=== PATIENT | female | born 1960 | race Caucasian/White ===

== ENCOUNTER 2018-02-27 16:53 | Observation (INO) | payer OTHER ==
[2018-02-27] MEDS: ONDANSETRON 4 MG INJ IV ×2 (17:29→19:36)
[2018-02-27 17:49] LABS: ADD MAN DIFF? NO
[2018-02-27 17:55] LABS: WHITE BLOOD COUNT 8.8 10^3/ul (4.8-10.8)
[2018-02-27 17:55] LABS: BASOPHILS % 0.2 % (0.0-2.0); EOSINOPHILS # 0.1 10^3/ul (0.0-0.5); EOSINOPHILS % 0.9 % (0.0-7.0); HEMATOCRIT 35.5 % (37.0-47.0); HEMOGLOBIN 12.8 g/dl (12.0-16.0); LYMPHOCYTES # 1.8 10^3/ul (0.8-2.9); LYMPHOCYTES % 19.9 % (15.0-51.0); MEAN CORPUSCULAR HEMOGLOBIN 30.1 pg (29.0-33.0); MEAN CORPUSCULAR HGB CONC 36.1 g/dl (32.0-37.0); MEAN CORPUSCULAR VOLUME 83.5 fl (82.0-101.0); MEAN PLATELET VOLUME 12.1 fl (7.4-10.4); MONOCYTE # 0.5 10^3/ul (0.3-0.9); MONOCYTES % 6.1 % (0.0-11.0); NEUTROPHIL # 6.4 10^3/ul (1.6-7.5); NEUTROPHILS % 72.3 % (39.0-77.0); PLATELET COUNT 364 10^3/UL (140-415); RED BLOOD COUNT 4.25 10^6/ul (4.20-5.40); RED CELL DISTRIBUTION WIDTH 11.8 % (11.5-14.5)
[2018-02-27 18:17] LABS: ALANINE AMINOTRANSFERASE 32 IU/L (13-69); ALBUMIN 4.4 g/dl (3.3-4.9); ALBUMIN/GLOBULIN RATIO 1.33; ALKALINE PHOSPHATASE 164 IU/L (42-121); ANION GAP 25 (8-16); ASPARTATE AMINO TRANSFERASE 17 IU/L (15-46); BILIRUBIN,INDIRECT 0.2 mg/dl (0-1.1); BILIRUBIN,TOTAL 0.2 mg/dl (0.2-1.3); BLOOD UREA NITROGEN 50 mg/dl (7-20); CALCIUM 9.3 mg/dl (8.4-10.2); CARBON DIOXIDE 23 mmol/L (21-31); CHLORIDE 89 mmol/L (97-110); CREATININE 2.37 mg/dl (0.44-1.00); GLUCOSE 331 mg/dl (70-220); LIPASE 194 U/L (23-300); POTASSIUM 3.1 mmol/L (3.5-5.1); SODIUM 134 mmol/L (135-144); TOTAL PROTEIN 7.7 g/dl (6.1-8.1)
[2018-02-27] MEDS: HYDROmorphONE 1 MG/ML SYG IV (19:36)
[2018-02-27] MEDS: SOD CHLORIDE 0.9% 1,000 ML IV (19:36)
[2018-02-27] MEDS ORDERED: NACL 0.9% 3 ML SYG IV (22:00)
[2018-02-27] MEDS ORDERED: BISACODYL (EC) 5 MG TAB PO (22:00)
[2018-02-27] MEDS ORDERED: DOCUSATE SODIUM 100 MG CAP PO (22:00)
[2018-02-27] MEDS ORDERED: ONDANSETRON 4 MG INJ IV (22:00)
[2018-02-27 23:28] LABS: ADD UMIC YES; UR ASCORBIC ACID NEGATIVE (NEGATIVE); UR BACTERIA FEW /HPF (NONE SEEN); UR BILIRUBIN (Dip) NEGATIVE (NEGATIVE); UR BLOOD (Dip) 1+ mg/dL (NEGATIVE); UR CLARITY SLIGHTLY CLOUDY (CLEAR); UR COLOR YELLOW (YELLOW); UR GLUCOSE (Dip) 3+ mg/dL (NEGATIVE); UR GRANULAR CAST FEW /HPF (NONE SEEN); UR HYALINE CAST FEW /HPF (NONE SEEN); UR KETONES (Dip) NEGATIVE (NEGATIVE); UR LEUKOCYTE ESTERASE (Dip) 3+ Leu/ul (NEGATIVE); UR NITRITE (Dip) NEGATIVE (NEGATIVE); UR NONSQUAMOUS EPITHELIAL CELL 1 /HPF (NONE SEEN); UR RBC 8 /HPF (0-5); UR SPECIFIC GRAVITY (Dip) 1.014 (1.003-1.030); UR SQUAMOUS EPITHELIAL CELL FEW /HPF (FEW); UR TOTAL PROTEIN (Dip) 3+ mg/dl (NEGATIVE); UR UROBILINOGEN (Dip) NEGATIVE (NEGATIVE); UR WBC 84 /HPF (0-5)
[2018-02-28] MEDS: SOD CHLORIDE 0.9% 1,000 ML IV ×2 (01:24→02:34)
[2018-02-28] MEDS: ACCU-CHEK XX (02:00)
[2018-02-28] MEDS: NS + KCL 20 MEQ 1,000 ML IV ×2 (03:31→16:48)
[2018-02-28] MEDS: POTASSIUM CHLORIDE (SR) 20 MEQ TAB PO (03:32)
[2018-02-28 05:57] LABS: ADD MAN DIFF? NO
[2018-02-28 06:04] LABS: WHITE BLOOD COUNT 5.7 10^3/ul (4.8-10.8)
[2018-02-28 06:04] LABS: BASOPHILS % 0.2 % (0.0-2.0); EOSINOPHILS # 0.1 10^3/ul (0.0-0.5); EOSINOPHILS % 1.8 % (0.0-7.0); HEMOGLOBIN 10.8 g/dl (12.0-16.0); LYMPHOCYTES # 2.1 10^3/ul (0.8-2.9); LYMPHOCYTES % 36.3 % (15.0-51.0); MEAN CORPUSCULAR HEMOGLOBIN 30.7 pg (29.0-33.0); MEAN CORPUSCULAR VOLUME 85.2 fl (82.0-101.0); MEAN PLATELET VOLUME 12.1 fl (7.4-10.4); MONOCYTE # 0.5 10^3/ul (0.3-0.9); MONOCYTES % 8.5 % (0.0-11.0); NEUTROPHILS % 52.8 % (39.0-77.0); PLATELET COUNT 269 10^3/UL (140-415); RED BLOOD COUNT 3.52 10^6/ul (4.20-5.40); RED CELL DISTRIBUTION WIDTH 11.9 % (11.5-14.5)
[2018-02-28 06:31] LABS: ALANINE AMINOTRANSFERASE 22 IU/L (13-69); ALBUMIN 3.2 g/dl (3.3-4.9); ALKALINE PHOSPHATASE 110 IU/L (42-121); ANION GAP 11 (8-16); ASPARTATE AMINO TRANSFERASE 15 IU/L (15-46); BLOOD UREA NITROGEN 43 mg/dl (7-20); CALCIUM 7.4 mg/dl (8.4-10.2); CARBON DIOXIDE 26 mmol/L (21-31); CHLORIDE 103 mmol/L (97-110); CHOL/HDL RATIO 4.9 RATIO; CHOLESTEROL 134 mg/dl (100-200); CREATININE 1.68 mg/dl (0.44-1.00); GLUCOSE 171 mg/dl (70-220); HDL CHOLESTEROL 27 mg/dl (37-92); LDL CHOLESTEROL,CALCULATED 37 mg/dl; MAGNESIUM 1.4 mg/dl (1.7-2.5); POTASSIUM 3.1 mmol/L (3.5-5.1); SODIUM 137 mmol/L (135-144); TOTAL PROTEIN 6.1 g/dl (6.1-8.1); TRIGLYCERIDES 352 mg/dl (0-149)
[2018-02-28 06:50] LABS: HEMOGLOBIN A1C 11.3 % (0-5.9)
[2018-02-28] MEDS: INSULIN ASPART [NOVOLOG] 3 ML PEN SC ×4 (07:55→20:47)
[2018-02-28] MEDS: ACETAMINOPHEN 325 MG TAB PO (07:56)
[2018-02-28] MEDS ORDERED: hydrALAzine 20 MG INJ IV (10:00)
[2018-02-28] MEDS: MAGNESIUM SULFATE 2 GM/50 ML 50 ML IVPB (10:28)
[2018-02-28] MEDS: FISH OIL 1,000 MG CAP PO ×2 (10:29→20:41)
[2018-02-28] MEDS: AMLODIPINE 5 MG TAB PO (10:29)
[2018-02-28 12:06] LABS: ADD UMIC YES; UR ASCORBIC ACID NEGATIVE (NEGATIVE); UR BACTERIA FEW /HPF (NONE SEEN); UR BILIRUBIN (Dip) NEGATIVE (NEGATIVE); UR BLOOD (Dip) NEGATIVE (NEGATIVE); UR CLARITY CLEAR (CLEAR); UR COLOR COLORLESS (YELLOW); UR GLUCOSE (Dip) 3+ mg/dL (NEGATIVE); UR KETONES (Dip) NEGATIVE (NEGATIVE); UR LEUKOCYTE ESTERASE (Dip) NEGATIVE Leu/ul (NEGATIVE); UR NITRITE (Dip) NEGATIVE (NEGATIVE); UR RBC 1 /HPF (0-5); UR TOTAL PROTEIN (Dip) 1+ mg/dl (NEGATIVE); UR UROBILINOGEN (Dip) NEGATIVE (NEGATIVE); UR WBC 0 /HPF (0-5)
[2018-02-28 13:17] LABS: CREATININE,URINE RANDOM 25.85 mg/dl (20-320)
[2018-02-28 13:20] LABS: SODIUM,URINE RANDOM 115 mmol/L (30-90)
[2018-02-28] MEDS: ATORVASTATIN 20 MG TAB PO (20:41)
[2018-03-01] MEDS: ACCU-CHEK XX (02:27)
[2018-03-01] MEDS: NS + KCL 20 MEQ 1,000 ML IV (02:29)
[2018-03-01 04:56] LABS: ADD MAN DIFF? NO
[2018-03-01 05:00] LABS: WHITE BLOOD COUNT 5.4 10^3/ul (4.8-10.8)
[2018-03-01 05:00] LABS: BASOPHILS % 0.4 % (0.0-2.0); EOSINOPHILS # 0.1 10^3/ul (0.0-0.5); EOSINOPHILS % 1.9 % (0.0-7.0); HEMATOCRIT 33.8 % (37.0-47.0); HEMOGLOBIN 11.7 g/dl (12.0-16.0); LYMPHOCYTES % 36.4 % (15.0-51.0); MEAN CORPUSCULAR HGB CONC 34.6 g/dl (32.0-37.0); MEAN CORPUSCULAR VOLUME 86.7 fl (82.0-101.0); MEAN PLATELET VOLUME 11.9 fl (7.4-10.4); MONOCYTE # 0.3 10^3/ul (0.3-0.9); NEUTROPHIL # 2.9 10^3/ul (1.6-7.5); NEUTROPHILS % 54.9 % (39.0-77.0); PLATELET COUNT 326 10^3/UL (140-415); RED CELL DISTRIBUTION WIDTH 12.2 % (11.5-14.5)
[2018-03-01 05:21] LABS: ANION GAP 13 (8-16); BLOOD UREA NITROGEN 25 mg/dl (7-20); CALCIUM 7.8 mg/dl (8.4-10.2); CARBON DIOXIDE 25 mmol/L (21-31); CHLORIDE 103 mmol/L (97-110); CREATININE 1.14 mg/dl (0.44-1.00); GLUCOSE 281 mg/dl (70-220); MAGNESIUM 2.1 mg/dl (1.7-2.5); PHOSPHORUS 2.8 mg/dl (2.5-4.9); POTASSIUM 3.6 mmol/L (3.5-5.1); SODIUM 137 mmol/L (135-144)
[2018-03-01] MEDS: FISH OIL 1,000 MG CAP PO (08:49)
[2018-03-01] MEDS: AMLODIPINE 5 MG TAB PO ×2 (08:50→12:30)
[2018-03-01] MEDS: INSULIN ASPART [NOVOLOG] 3 ML PEN SC ×2 (09:02→12:41)
[2018-03-01] MEDS: metFORMIN 500 MG TAB PO (12:29)
[2018-03-01] MEDS: INSULIN GLARGINE [LANTus] (100 UNITS/ML) SYG SC (15:04)
[2018-03-01 15:46] LABS: CREATININE, RANDOM URINE 32 mg/dL (20-320); MICROALBUMIN 28.7 mg/dL; MICROALBUMIN/CREATININE RATIO 897 (<30)
[2018-03-02] MEDS ORDERED: AMLODIPINE 10 MG TAB PO (09:00)
== END 2018-03-01 15:15 | disposition home or self-care (01) ==
LOC: MS3 22:00 → FTE 16:53 → MS1 02-28 10:05
PROVIDERS: Family Medicine
DX: A08.4 Viral intestinal infection, unspecified (principal); E11.65 Type 2 diabetes mellitus with hyperglycemia; Z79.4 Long term (current) use of insulin; H54.40 Blindness, one eye, unspecified eye; E78.5 Hyperlipidemia, unspecified; E78.1 Pure hyperglyceridemia; E87.5 Hyperkalemia; D64.9 Anemia, unspecified; E83.42 Hypomagnesemia; M89.8X9 Other specified disorders of bone, unspecified site; Z83.3 Family history of diabetes mellitus
CPT/HCPCS: 74018; 74176; 76775; 80048; 80053; 80061; 81001; 81003; 82043; 82962; 83036; 83690; 83735; 84100; 84155; 84300; 84443; 85025; 87086; 96374; 96375; 96376; 99285-25